=== PATIENT | male | born 2005 | race Caucasian/White ===

== ENCOUNTER → 2023-12-14 | Outpatient (CLI) | payer OTHER ==
[~2023-12-14] MED LIST: ISOVUE-370 76% 100ML VIAL As Ordered ONE
== END ==
LOC: M RAD 07:18
PROVIDERS: ATTEND Neurological Surgery
DX: Z86.79 Personal history of other diseases of the circulatory system (principal)
CPT/HCPCS: 70496; Q9967

== ENCOUNTER 2024-06-16 23:17 | Emergency (ER) | payer OTHER ==
[~2024-06-16] VITALS: Ht 180.3 cm; Wt 86.1 kg
[2024-06-16] MEDS ORDERED: PROP20TA72 (23:24)
[2024-06-16 23:47] LABS: BASO # 0.1 10^3/uL (0.0-0.2); BASO % 0.8 % (0.0-1.0); EOS # 0.3 10^3/uL (0.0-0.5); EOS % 4.3 % (0.0-3.0); HEMATOCRIT 46.5 % (42.0-52.0); HEMOGLOBIN 16.1 g/dl (13.5-17.5); LYMPH # 3.7 10^3/uL (1.5-5.0); LYMPH % 50.3 % (24.0-44.0); MEAN CORPUSCULAR HEMOGLOBIN 29.6 pg (27.0-33.0); MEAN CORPUSCULAR HGB CONC 34.6 g/dl (32.0-36.5); MEAN CORPUSCULAR VOLUME 85.5 fl (80.0-96.0); MONO # 0.4 10^3/uL (0.0-0.8); MONO % 5.4 % (2.0-8.0); NEUTROPHILS # 2.9 10^3/uL (1.5-8.5); NEUTROPHILS % 38.9 % (36.0-66.0); PLATELET COUNT, AUTOMATED 250 10^3/uL (150-450); RED BLOOD COUNT 5.44 10^6/uL (4.30-6.10); WHITE BLOOD COUNT 7.4 10^3/uL (4.0-10.0)
[2024-06-17 00:10] LABS: CK-MB VALUE MASS < 1.0 NG/ML (<3.6)
[2024-06-17 00:11] LABS: BLOOD UREA NITROGEN 20 MG/DL (9-23); CALCIUM LEVEL 9.8 MG/DL (8.5-10.1); CARBON DIOXIDE LEVEL 28 MMOL/L (20-31); CHLORIDE LEVEL 105 MMOL/L (98-107); CREATININE FOR GFR 1.04 MG/DL (0.70-1.30); GLUCOSE, FASTING 109 MG/DL (60-100); POTASSIUM SERUM 3.9 MMOL/L (3.5-5.1); SODIUM LEVEL 142 MMOL/L (136-145)
[2024-06-17 00:22] LABS: CPK CREATINE PHOSPHOKINASE 189 U/L (46-171); MB/CK RELATIVE INDEX 0.52 (< OR =4)
[2024-06-17] MEDS ORDERED: ISOVUE-370 76% 100ML VIAL As Ordered ONE (00:28)
[2024-06-17] MEDS: KETOROLAC 30 MG/ML 1ML VIAL IV ONE (00:32)
[2024-06-17 01:45] LABS: CK-MB VALUE MASS < 1.0 NG/ML (<3.6)
[2024-06-17 02:28] LABS: CPK CREATINE PHOSPHOKINASE 185 U/L (46-171); MB/CK RELATIVE INDEX 0.54 (< OR =4)
[2024-06-17 03:00] VITALS: TEMP 97.5; O2SAT 95
[2024-06-17 03:01] VITALS: BP 120/56
== END 2024-06-17 03:10 | disposition home or self-care (01) ==
LOC: M ED 23:17
DX: R07.89 Other chest pain (principal)
CPT/HCPCS: 71045; 71275; 80048; 82550; 82553; 84484; 85025; 93005; 93041; 94760; 96374; 99285; J1885; Q9967

== ENCOUNTER → 2024-08-29 | Outpatient (CLI) | payer OTHER ==
[~2024-08-29] MED LIST changes: -ISOVUE-370 76% 100ML VIAL As Ordered ONE; +PROP20TA72
== END ==
LOC: M CARPUL 11:02
PROVIDERS: ATTEND Physician Assistant
DX: R06.00 Dyspnea, unspecified (principal)

== ENCOUNTER 2025-03-04 15:37 | Emergency (ER) | payer OTHER ==
[~2025-03-04] VITALS: Ht 180.3 cm; Wt 94.4 kg
[2025-03-04] MEDS ORDERED: MELO15TA28 PO (15:53)
[2025-03-04] MEDS ORDERED: CETI5SOL3 PO (15:53)
[2025-03-05] MEDS ORDERED: METH-1165 PO (01:15)
[2025-03-05] MEDS ORDERED: MEDR4PAK PO (01:15)
[2025-03-05 01:35] VITALS: BP 141/71; TEMP 96.8; O2SAT 98
== END 2025-03-05 01:36 | disposition home or self-care (01) ==
LOC: M ED 15:37
DX: M51.362 Other intervertebral disc degeneration, lumbar region with discogenic back pain and lower extremity pain (principal)